=== PATIENT | male | born 1980 | race Caucasian/White ===

== ENCOUNTER 2021-08-22 12:34 | Emergency (ER) | payer BC ==
[2021-08-22 14:18] LABS: CORONAVIRUS COVID-19 NAA NEGATIVE (NEGATIVE); INFLUENZA A NAA NEGATIVE (NEGATIVE); INFLUENZA B NAA NEGATIVE (NEGATIVE)
--- NOTE | 2021-08-22 16:08 | EDM.PDOC ---
ED HPI GENERAL MEDICAL PROBLEM - General Chief Complaint: Respiratory Problem Stated Complaint: COUGH Time Seen by Provider: 08/22/21 16:05 Source of Information: Reports: Patient - History of Present Illness INITIAL COMMENTS - FREE TEXT/NARRATIVE: Pt presents with complaints of congestion, cough, SOB, fatigue, and headache since 08/16/21. Pt denies known exposure to COVID or flu. tachycardiac at 102 up on arrival. Patient denies shortness of breath Patient has been vaccinated against Covid. He is complaining of subjective fevers and thick nasal discharge and sinus pressure and congestion headache Pain Score (Numeric/FACES): 9 - Related Data Allergies Allergy/AdvReac Type Severity Reaction Status Date / Time No Known Allergies Allergy Verified 08/22/21 13:10 Home Meds: Home Meds Acetaminophen with Codeine [Acetaminophen-Cod #2] 2 each PO Q6HR PRN #20 tablet 08/22/21 [Rx] Amoxicillin/Potassium Clav [Augmentin 875-125 Tablet] 1 each PO BID #20 tablet 08/22/21 [Rx] amLODIPine [Norvasc] 5 mg PO DAILY 08/22/21 [History] Past Medical History HEENT History: Reports: None Cardiovascular History: Reports: Hypertension Respiratory History: Reports: None Gastrointestinal History: Reports: None Genitourinary History: Reports: None Musculoskeletal History: Reports: None Neurological History: Reports: None Psychiatric History: Reports: None Endocrine/Metabolic History: Reports: None Hematologic History: Reports: None Immunologic History: Reports: None Oncologic (Cancer) History: Reports: None Dermatologic History: Reports: None - Infectious Disease History Infectious Disease History: Reports: Chicken Pox - Past Surgical History Head Surgeries/Procedures: Reports: None Cardiovascular Surgical History: Reports: None Social & Family History - Family History Family Medical History: No Pertinent Family History - Tobacco Use Tobacco Use Status *Q: Never Tobacco User Second Hand Smoke Exposure: No - Caffeine Use Caffeine Use: Reports: Coffee - Recreational Drug Use Recreational Drug Use: No ED ROS GENERAL - Review of Systems Review Of Systems: Comprehensive ROS is negative, except as noted in HPI. ED EXAM, GENERAL - Physical Exam Exam: See Below Free Text/Narrative:: CONSTITUTIONAL: well appearing in no acute distress SKIN: Warm, dry, and intact without rash HENT: Normocephalic, atraumatic, PULMONARY: Some diminished breath sounds bilaterally. Scant bilateral wheeze CARDIOVASCULAR: regular rate, No murmur, rubs, or gallops GASTROINTESTINAL: soft, nondistended, nontender NEUROLOGIC: normal speech, II-XII intact. light touch/5/5 power equal and symmetric in upper and lower extremities without deficit MUSCULOSKELETAL: no gross deformities, atraumatic PSYCHIATRIC: normal mood and affect Course - Vital Signs Text/Narrative:: Differential diagnosis: Pneumonia, Covid, influenza, sinusitis, other Patient presents as outlined above. Negative for Covid and influenza. Chest x- ray negative for any pneumonia. Patient does have some wheezing and likely has some bronchitis and/or underlying mild reactive airway disease. Patient given inhaler. Patient is getting close to 10 days in the setting of sinusitis so will be given antibiotics in the event that this does not clear within several days for which antibiotics are given for a viral sinusitis lasting greater than 10 days. Is advised not to take antibiotics until these 10 days are met if there is no improvement in symptoms Last Recorded V/S: Last Vital Signs Temp 36.4 C 08/22/21 18:04 Pulse 99 08/22/21 18:04 Resp 16 08/22/21 18:04 BP 139/92 H 08/22/21 18:04 Pulse Ox 94 L 08/22/21 18:04 - Orders/Labs/Meds Labs: Laboratory Tests 08/22/21 Range/Units 13:20 Influenza Type A RNA NEGATIVE (NEGATIVE) Influenza Type B RNA NEGATIVE (NEGATIVE) SARS-CoV-2 RNA (EFREN) NEGATIVE (NEGATIVE) Meds: Medications Discontinued Medications Generic Name Dose Route Start Last Admin Trade Name Freq PRN Reason Stop Dose Admin Albuterol 2.5 gm 08/22/21 16:11 08/22/21 16:29 Albuterol 8 Gm Inhaler INH 08/22/21 16:12 2.5 gm ONETIME ONE Administration Departure - Departure Time of Disposition: 17:51 Disposition: Home, Self-Care 01 Condition: Good Clinical Impression: Sinusitis - Discharge Information Prescriptions: Acetaminophen with Codeine [Acetaminophen-Cod #2] 2 each PO Q6HR PRN #20 tablet PRN Reason: Cough Amoxicillin/Potassium Clav [Augmentin 875-125 Tablet] 1 each PO BID #20 tablet Instructions: Sinusitis, Adult Referrals: Raul Gonzalez MD [Primary Care Provider] - Forms: ED Department Discharge Additional Instructions: Return for shortness of breath, change or worsening condition or lack of improvement. Take antibiotics if your symptoms persist for longer than 10 days. The following information is given to patients seen in the emergency department who are being discharged to home. This information is to outline your options for follow-up care. We provide all patients seen in our emergency department with a follow-up referral. The need for follow-up, as well as the timing and circumstances, are variable depending upon the specifics of your emergency department visit. If you don't have a primary care physician on staff, we will provide you with a referral. We always advise you to contact your personal physician following an emergency department visit to inform them of the circumstance of the visit and for follow-up with them and/or the need for any referrals to a consulting specialist. The emergency department will also refer you to a specialist when appropriate. This referral assures that you have the opportunity for follow-up care with a specialist. All of these measure are taken in an effort to provide you with optimal care, which includes your follow-up. Primary care clinics in the area: [facility] [address] [place] [address] [place] [address] Under all circumstances we always encourage you to contact your private physician who remains a resource for coordinating your care. When calling for follow-up care, please make the office aware that this follow-up is from your recent emergency room visit. If for any reason you are refused follow-up, please contact the [facility] Department at and asked to speak to the emergency department charge nurse. Sepsis Event Note (ED) - Evaluation Sepsis Screening Result: No Definite Risk
[2021-08-22] MEDS ORDERED: Albuterol 8 GM Inhaler INH ONE (16:11)
--- NOTE | 2021-08-22 17:37 | CR ---
INDICATION: Shortness of breath. COMPARISON: None available. FINDINGS: PA and lateral views of the chest were obtained. The lungs are clear. No focal or diffuse infiltrates are present. The heart is normal in size. The mediastinum is normal in appearance. The osseous structures are normal in appearance for the patient`s age. IMPRESSION: Normal chest 2 views. Dictated by Preston Aldrich MD @ 08/22/2021 5:35:42 PM (Electronically Signed)
== END 2021-08-22 18:07 | disposition home or self-care (01) ==
LOC: MW.ED 12:34
DX: J32.9 Chronic sinusitis, unspecified (principal); I10 Essential (primary) hypertension; Z79.899 Other long term (current) drug therapy; Z20.822 Contact with and (suspected) exposure to COVID-19
CPT/HCPCS: 0240U; 71046; 99284; A9270